=== PATIENT | female | born 1985 | race Caucasian/White ===

== ENCOUNTER 2021-12-03 11:27 | Outpatient (CLI) | payer BC, SELFPAY ==
--- NOTE | ~2021-12-03 | MMUS_ITS ---
EXAMINATION: MM diagnostic patricia BI w parveen, US breast BI limited HISTORY: Left upper outer quadrant breast pain TECHNIQUE: ML, MLO and CC 3-D tomosynthesis images of both breasts were performed and synthetic 2-D i mages were generated. CAD analysis was submitted and interpreted. High resolution upper outer and low er-outer quadrant bilateral breast ultrasound was performed. COMPARISON: None BREAST PARENCHYMAL COMPOSITION: The breasts are heterogeneously dense, which may obscure small masses . FINDINGS: MAMMOGRAPHIC FINDINGS: Heterogeneously dense stroma is noted particularly in the outer half of each breast. No suspicious re producible mammographic mass or architectural distortion. No malignant calcification, skin thickening or retraction is evident. ULTRASOUND: There is tenosynovitis stroma in the upper outer and lower-outer quadrants of each breast but no mass lesion or suspicious shadowing, cyst or other significant sonographic finding is noted. IMPRESSION: 1. No mammographic evidence of malignancy 2. Routine annual mammographic screening is recommended. BI-RADS Category 1: Negative Reviewed, dictated and finalized at location A. IMPRESSION: 1. No mammographic evidence of malignancy 2. Routine annual mammographic screening is recommended. BI-RADS Category 1: Negative
== END 2021-12-03 11:28 | disposition home or self-care (01) ==
PROVIDERS: Visit Provider Nurse Practitioner Obstetrics & Gynecology
DX: N64.4 Mastodynia (principal); Z11.51 Encounter for screening for human papillomavirus (HPV)
CPT/HCPCS: 76642; 77062; 77066; G0279